=== PATIENT | female | born 1985 | race American Indian/Alaskan Native ===

== ENCOUNTER 2017-01-09 18:41 | Emergency (ER) | payer BC, OTHER ==
[2017-01-09 18:48] VITALS: BP 101/62; PULSE 73; TEMP 98.4; BMI 22.8
--- NOTE | 2017-01-09 19:08 | PDOC ---
History of Present Illness - General Chief Complaint: Injury Stated Complaint: RT ANKLE INJURY Time Seen by Provider: 01/09/17 19:01 History Source: Patient Exam Limitations: No Limitations - History of Present Illness Initial Comments: 01/09/17 19:03 Occurred: reports: just prior to arrival Past History - Travel Traveled outside of the country in the last 30 days: No Close contact w/someone who was outside of country & ill: No - Past Medical History Allergies/Adverse Reactions: Allergies Allergy/AdvReac Type Severity Reaction Status Date / Time No Known Allergies Allergy Verified 01/09/17 18:48 Other medical history: NONE - Psycho/Social/Smoking Cessation Hx Anxiety: No Suicidal Ideation: No Smoking History: Never smoked Hx Alcohol Use: No Drug/Substance Use Hx: No Substance Use Type: None Review of Systems - Review of Systems Able to Perform ROS?: Yes Is the patient limited Estonian proficient: Yes Constitutional: Yes: Symptoms Reported, See HPI HEENTM: No: Symptoms Reported Respiratory: No: Symptoms reported Musculoskeletal: Yes: Symptoms Reported, See HPI, Joint Pain, Joint Swelling Integumentary: Yes: Symptoms Reported, See HPI, Bruising (to lateral aspect dorsum of foot. + ) Neurological: Yes: Symptoms reported, See HPI, Numbness All Other Systems: Reviewed and Negative *Physical Exam - Vital Signs Last Vital Signs Temp Pulse Resp BP Pulse Ox 98.4 F 73 20 101/62 97 01/09/17 18:44 01/09/17 18:44 01/09/17 18:44 01/09/17 18:44 01/09/17 18:44 - Physical Exam General Appearance: Yes: Nourished, Appropriately Dressed, Apparent Distress HEENT: positive: DINAH, Normal ENT Inspection, TMs Normal, Pharynx Normal Gastrointestinal/Abdominal: positive: Soft. negative: Normal Bowel Sounds Musculoskeletal: positive: Decreased Range of Motion. negative: Normal Inspection Extremity: positive: Normal Range of Motion, Tender (+5th metatarsal tenderness negative medial or lateral malleoli tenderness, negative squeeze test, neurovascular intact to toes) Integumentary: positive: Dry, Warm, Swelling, Bruising Neurologic: positive: buckle sewer II-XII NML intact, Fully Oriented, Alert, Normal Mood/ Affect Progress Note - Progress Note Progress Note: Right ankle sprain, Georges air cast and crutches provided *DC/Admit/Observation/Transfer Diagnosis at time of Disposition: Right ankle sprain Qualifiers: Encounter type: initial encounter Involved ligament of ankle: unspecified ligament Qualified Code(s): S93.401A - Sprain of unspecified ligament of right ankle, initial encounter - Discharge Dispostion Disposition: HOME Condition at time of disposition: Stable Admit: No - Referrals Referrals: Viraj Bettencourt MD [Primary Care Provider] - Lalo Collins MD [Staff Physician] - - Patient Instructions Printed Discharge Instructions: DI for Ankle Sprain Additional Instructions: Rest, ice to area on and off for 15 minutes 4-6 times a day Avoid heavy lifting or exercise until pain and swelling is resolved or until further directed Keep area highly elevated to reduce swelling Use splints/Georges wrap as directed Followup with orthopedist in one to 2 days if not improving, if significantly improved may wait one week for followup with orthopedist May use ibuprofen 2-200 mg tablets every 6 hours as needed for pain - Post Discharge Activity Work/School Note: Back to Work
[2017-01-09] MEDS ORDERED: OXYCODONE/APAP 5/325MG COMBO TABLET ONE (19:19)
== END 2017-01-09 19:28 | disposition home or self-care (01) ==
LOC: JERFT 18:41
PROC: 2W3LX1Z Immobilization of Right Lower Extremity using Splint (ICD-10-PCS; principal; 2017-01-09)
DX: S93.401A Sprain of unspecified ligament of right ankle, initial encounter (principal); X50.1XXA Overexertion from prolonged static or awkward postures, initial encounter; Y93.89 Activity, other specified; Y92.89 Other specified places as the place of occurrence of the external cause; Y99.8 Other external cause status
CPT/HCPCS: 73610-TC-RT; 99281-25

== ENCOUNTER 2018-07-18 12:12 | Emergency (ER) | payer BC ==
[2018-07-18 12:45] VITALS: TEMP 98.3; BMI 25.7
[2018-07-18] MEDS ORDERED: ACETAMINOPHEN 325 MG TABLET (FP) PO ONE (14:12)
[2018-07-18] MEDS ORDERED: ACETAMINOPHEN 325 MG TABLET (FP) ONE (14:17)
--- NOTE | 2018-07-18 14:53 | PDOC ---
History of Present Illness - General Chief Complaint: Chest Pain Stated Complaint: CHEST PAIN/PREG Time Seen by Provider: 07/18/18 13:06 History Source: Patient Exam Limitations: No Limitations - History of Present Illness Initial Comments: 07/18/18 14:17 32 yo female 13 weeks with first child, no sig pmh presents to the ED for sudden onset non exercional CP that began at 8 30 this am. Pain is focally located just lateral to the sternum at rib 4, described as sharp, non radiating made worse with movement and local palpation, no N/V. No smoking hx, HTN, HLD. Pt states no trauma but states she had a hug from a co worker today after giving the news of . No SOB, abdominal pain or changes in bowel or bladder function. Past History - Past Medical History Allergies/Adverse Reactions: Allergies Allergy/AdvReac Type Severity Reaction Status Date / Time No Known Allergies Allergy Verified 07/18/18 12:39 Home Medications: Ambulatory Orders Pnv No.95/Ferrous Fum/Folic AC [ Formula] 1 each PO DAILY 07/18/18 COPD: No - Suicide/Smoking/Psychosocial Hx Smoking History: Never smoked Information on smoking cessation initiated: No Hx Alcohol Use: No Drug/Substance Use Hx: No Substance Use Type: None Review of Systems - Review of Systems Constitutional: No: Chills, Fever Respiratory: No: Shortness of Breath Cardiac (ROS): Yes: Chest Pain (focal). No: Palpitations ABD/GI: No: Constipated, Diarrhea, Nausea, Vomiting : Yes: Other (denies vaginal bleeding). No: Dysuria, Flank Pain Musculoskeletal: Yes: Muscle Weakness (left arm states it is due to pain) Neurological: No: Headache *Physical Exam - Vital Signs Last Vital Signs Temp Pulse Resp BP Pulse Ox 98.3 F 83 18 97/55 L 100 07/18/18 12:41 07/18/18 12:41 07/18/18 12:41 07/18/18 12:41 07/18/18 12:41 - Physical Exam General Appearance: Yes: Nourished, Appropriately Dressed. No: Apparent Distress HEENT: positive: EOMI Respiratory/Chest: positive: Lungs Clear, Normal Breath Sounds. negative: Respiratory Distress Cardiovascular: positive: Regular Rhythm, Regular Rate, S1, S2. negative: Edema , JVD, Murmur Vascular Pulses: Dorsalis-Pedis (R): 4+, Doralis-Pedis (L): 4+ Gastrointestinal/Abdominal: positive: Normal Bowel Sounds, Flat, Soft. negative : Guarding, Rebound, Tenderness Musculoskeletal: positive: Normal Inspection Extremity: positive: Normal Capillary Refill Integumentary: positive: Normal Color, Dry, Warm Neurologic: positive: Fully Oriented, Alert, Normal Mood/Affect, Normal Response ED Treatment Course - LABORATORY CBC & Chemistry Diagram: 07/18/18 14:58 07/18/18 14:58 Medical Decision Making - Medical Decision Making 07/18/18 15:47 Waiting for call back from Dr. Owens *DC/Admit/Observation/Transfer Diagnosis at time of Disposition: Chest pain Qualifiers: Chest pain type: other chest pain Qualified Code(s): R07.89 - Other chest pain - Discharge Dispostion Disposition: HOME Condition at time of disposition: Stable Decision to Admit order: No - Referrals Referrals: Fernando Beck MD [Staff Physician] - - Patient Instructions Printed Discharge Instructions: Medications and , Costochondritis, DI for Chest Pain Additional Instructions: Please follow up with your TOOLING ENGINEER Doctor within the next 2 days regarding your ER visit. Please return to the Emergency Room for new or worsening symptoms including but not limited to: chest pain on exertion, severe chest pain not relieved by medications, nausea, vomiting or weakness on one side of your body. Please only take Tylenol for pain and no other pain medication due to for relief as needed and directed on the box. Thank you. - Post Discharge Activity
--- NOTE | 2018-07-18 15:05 | PDOC ---
Attending Attestation - Resident Resident Name: Manjinder Gao - ED Attending Attestation I have performed the following: I have examined & evaluated the patient, The case was reviewed & discussed with the resident, I agree w/resident's findings & plan, Exceptions are as noted - HPI HPI: 07/18/18 15:00 32 yo F currently 13 weeks here with c/o chest pain. pt states no h/o pe/ dvt. no leg swelling. 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 denies trauma. hurts with any movement or breathing. no recent travel. no calf swelling. no f/c no cough. follows ob dr friedman - Physicial Exam PE: 07/18/18 15:02 awake alert lungs clear bilaterally chest wall ttp. no rebound no guarding. heart rrr no mrg. abd soft gravid nontender. ext wwp no calf tenderness no calf tenderness no edema. skin warm and dry. - Medical Decision Making 07/18/18 15:03 focused ED ultrsaound transabdominal ob/ evaluate well being uterus scanned in two planes. movement noted. heart rate measured 141 bpm impression : live IUP normal heart rate. focused ED TTE performed indication chest pain no peridardial effusion good contractility no rv dilation or strain. impression: normal TTE 32 yo F with 13 weeks , here with reproducible chest pain. normal echo, normal fhr. will obtain ekg, cxr r/o infeciton or rib injury. tylenol for pain. will d/w dr. friedman. unlikely pe as reproducable nature.
[2018-07-18 15:08] LABS: BASO % 0.4 % (0-2.0); EOS % 0.3 % (0-4.5); HEMATOCRIT 36.3 % (32.4-45.2); HEMOGLOBIN 12.1 GM/dL (10.7-15.3); LYMPH % 15.6 % (8-40); MCH 29.1 pg (25.7-33.7); MCHC 33.4 g/dl (32.0-36.0); MEAN CELL VOLUME 87.2 fl (80-96); MEAN PLT VOLUME 8.2 fl (7.5-11.1); MONO % 4.7 % (3.8-10.2); PLATELET COUNT 244 K/MM3 (134-434); RBC 4.16 M/mm3 (3.60-5.2); RDW 13.4 % (11.6-15.6); WHITE BLOOD COUNT 13.9 K/mm3 (4.0-10.0)
[2018-07-18 15:42] LABS: ALK PHOS 52 U/L (45-117); ANION GAP 8 MMOL/L (8-16); BILIRUBIN,TOTAL 0.2 mg/dL (0.2-1); BLOOD UREA NITROGEN 5 mg/dL (7-18); CALCIUM 8.5 mg/dL (8.5-10.1); CHLORIDE 105 mmol/L (98-107); CO2 22 mmol/L (21-32); CREATININE 0.3 mg/dL (0.55-1.3); GLUCOSE,RANDOM 68 mg/dL (74-106); POTASSIUM 3.9 mmol/L (3.5-5.1); SGOT/AST 14 U/L (15-37); SGPT/ALT 17 U/L (13-61); SODIUM 135 mmol/L (136-145); TOT PROT 6.7 g/dl (6.4-8.2)
[2018-07-18 17:44] VITALS: BP 95/44; PULSE 79
--- NOTE | 2018-07-19 13:04 | EKG ---
Test Reason : Blood Pressure : / mmHG Vent. Rate : 077 BPM Atrial Rate : 077 BPM P-R Int : 136 ms QRS Dur : 092 ms QT Int : 392 ms P-R-T Axes : 062 091 047 degrees QTc Int : 443 ms NORMAL SINUS RHYTHM POSSIBLE LEFT ATRIAL ENLARGEMENT RIGHTWARD AXIS INCOMPLETE RIGHT BUNDLE BRANCH BLOCK BORDERLINE ECG NO PREVIOUS ECGS AVAILABLE Confirmed by MD OLESYA, ANY ([id number]) on 07/19/2018 1:04:12 PM Referred By: Confirmed By:ANY DACOSTA MD
== END 2018-07-18 17:44 | disposition home or self-care (01) ==
LOC: JER 12:12
PROC: B24BZZZ Ultrasonography of Heart with Aorta (ICD-10-PCS; principal; 2018-07-18)
PROC: BY49ZZZ Ultrasonography of First Trimester, Single Fetus (ICD-10-PCS; 2018-07-18)
DX: O26.891 Other specified pregnancy related conditions, first trimester (principal); R07.89 Other chest pain; Z3A.13 13 weeks gestation of pregnancy
CPT/HCPCS: 36415; 71046-TC-FY; 80053; 82550; 84484; 85025; 93005; 93010; 93970-TC; 99282-25

== ENCOUNTER 2018-12-29 09:20 | Inpatient (IN) | payer BC, OTHER ==
[2018-12-29] MEDS ORDERED: DEXTROSE 5%-LACTATED RINGERS 1,000 ML IV SCH (10:15)
[2018-12-29] MEDS ORDERED: AMPICILLIN - 2 GM in DEXTROSE 5%-WATER 100 ML IVPB ONE (10:15)
[2018-12-29] MEDS ORDERED: AMPICILLIN SODIUM 2 GM VIAL ONE (10:19)
[2018-12-29 11:07] LABS: BASO % 0.2 % (0-2.0); EOS % 0.6 % (0-4.5); HEMATOCRIT 39.8 % (32.4-45.2); HEMOGLOBIN 12.9 GM/dL (10.7-15.3); LYMPH % 18.1 % (8-40); MCH 28.4 pg (25.7-33.7); MCHC 32.4 g/dl (32.0-36.0); MEAN CELL VOLUME 87.7 fl (80-96); MEAN PLT VOLUME 8.1 fl (7.5-11.1); MONO % 8.6 % (3.8-10.2); NEUT % 72.5 % (42.8-82.8); PLATELET COUNT 298 K/MM3 (134-434); RBC 4.53 M/mm3 (3.60-5.2); RDW 14.3 % (11.6-15.6)
[2018-12-29 11:21] LABS: INR 0.95 (0.83-1.09); PROTHROMBIN TIME (PATIENT) 11.2 SEC (9.7-13.0)
[2018-12-29 11:35] LABS: ANION GAP 9 MMOL/L (8-16); BLOOD UREA NITROGEN 7 mg/dL (7-18); CALCIUM 8.8 mg/dL (8.5-10.1); CHLORIDE 105 mmol/L (98-107); CO2 24 mmol/L (21-32); CREATININE 0.4 mg/dL (0.55-1.3); GLUCOSE,RANDOM 97 mg/dL (74-106); POTASSIUM 4.2 mmol/L (3.5-5.1); SODIUM 138 mmol/L (136-145)
[2018-12-29 11:39] VITALS: BMI 30.3
[2018-12-29] MEDS ORDERED: TUBERCULIN PPD 5 TU/0.1ML SYRINGE (IN PATIENT USE ONLY) ID ONE (13:00)
[2018-12-29] MEDS ORDERED: BUTORPHANOL TARTRATE 1 MG/ML VIAL IVPUSH ONE (13:38)
[2018-12-29] MEDS ORDERED: PROMETHAZINE HCL 25 MG/1 ML VIAL IVPUSH ONE (13:38)
--- NOTE | 2018-12-29 13:44 | HP ---
Past Medical History - Primary Care Physician PCP:: Fernando Beck - Admission Chief Complaint: 36 weeks, prom History of Present Illness: 33 yo f g 1 p0 36 weeks, c/o rom since 5 am today, clear fluid, no pain, no fever , no vaginal bleeding, fhr cat 1, no contraction History Source: Patient Limitations to Obtaining History: No Limitations - Past Medical History ...: 1 ...Para: 0 ...LMP: 04/18/18 ... Weeks Gestation by Dates: 36.3 ...EDC by Dates: 01/23/19 ...EDC by Sono: 01/21/19 - Past Surgical History Hx Myomectomy: No Hx Transabdominal Cerclage: No - Smoking History Smoking history: Never smoked - Alcohol/Substance Use Hx Alcohol Use: No - Social History Usual Living Arrangement: Yes: With Spouse History of Recent Travel: No Home Medications - Allergies Allergies/Adverse Reactions: Allergies Allergy/AdvReac Type Severity Reaction Status Date / Time No Known Allergies Allergy Verified 07/18/18 12:39 - Home Medications Home Medications: Ambulatory Orders Pnv No.95/Ferrous Fum/Folic AC [ Formula] 1 each PO DAILY 07/18/18 Review of Systems - Review of Systems Constitutional: reports: No Symptoms Eyes: reports: No Symptoms HENT: reports: No Symptoms Neck: reports: No Symptoms Cardiovascular: reports: No Symptoms Respiratory: reports: No Symptoms Gastrointestinal: reports: No Symptoms Genitourinary: reports: No Symptoms Breasts: reports: No Symptoms Reported Musculoskeletal: reports: No Symptoms Integumentary: reports: No Symptoms Neurological: reports: No Symptoms Endocrine: reports: No Symptoms Hematology/Lymphatic: reports: No Symptoms Psychiatric: reports: No Symptoms Physical Exam - Maternity Vital Signs: Vital Signs Temperature 98 F 12/29/18 13:00 Pulse Rate 94 H 12/29/18 13:00 Respiratory Rate 20 12/29/18 13:00 Blood Pressure 109/74 12/29/18 13:00 O2 Sat by Pulse Oximetry (%) Constitutional: Yes: Well Nourished, No Distress, Calm Eyes: Yes: WNL, Conjunctiva Clear, EOM Intact HENT: Yes: WNL, Atraumatic, Normocephalic Neck: Yes: WNL, Supple, Trachea Midline Cardiovascular: Yes: WNL, Regular Rate and Rhythm Breast(s): Yes: WNL - Abdominal Exam/OB Fundal Height: 36 Number of Fetuses: Single Presentation: Vertex Contractions: No Regularity: Irritability Intensity: Unaware Monitor Mode: External Heart Rate Location: [facility] Category: I - Vaginal Exam/OB Vaginal Bleediing: No Speculum Exam: Yes Amniotic Membrane Status: Ruptured Nitrazine Test: Positive Amniotic Fluid: Yes: Clear Presentation: Vertex/Position Station: -3 - Physical Exam Musculoskeletal: Yes: WNL Extremities: Yes: WNL Edema: LLE: Trace, RLE: Trace Deep Tendon Reflex Grade: Normal +2 - Labs Lab Results: CBC, BMP 12/29/18 10:30 12/29/18 10:30 Problem List - Problems (1) with 36 completed weeks gestation Code(s): Z3A.36 - 36 WEEKS GESTATION OF (2) PROM (premature rupture of membranes) Code(s): O42.90 - KAM ROM, 7TH0 BETW RUPT & ONST LABR, UNSP WEEKS OF GEST Qualifiers: PROM onset of labor timing: onset of labor within 24 hours of rupture Assessment/Plan plan admit
[2018-12-29] MEDS ORDERED: AMPICILLIN SODIUM 1 GM VIAL ONE ×3 (13:58→20:43)
[2018-12-29] MEDS: AMPICILLIN - 1 GM in DEXTROSE 5%-WATER - 50 ML IVPB SCH ×3 (14:15→22:07)
--- NOTE | 2018-12-29 16:27 | PN ---
Progress Note (short form) - Note Progress Note: CX CLOSED , VX -3 MR, NITRAZINE POSITIVE, GROSS FLUID LEKAGE , FHR CAT 1, NO CONTRACTION, , CERVIDIL INDUCTION VS EXPECTANT MAMNAGEMENT DISCUSSED , ADVISED CERVIDIL INDUCTION CERVIDIL INSERTED Problem List - Problems (1) with 36 completed weeks gestation Code(s): Z3A.36 - 36 WEEKS GESTATION OF (2) PROM (premature rupture of membranes) Code(s): O42.90 - KAM ROM, 7TH0 BETW RUPT & ONST LABR, UNSP WEEKS OF GEST Qualifiers: PROM onset of labor timing: onset of labor within 24 hours of rupture
[2018-12-29] MEDS ORDERED: DINOPROSTONE 10 MG VAGINAL SUPPOSITORY VG ONE (16:30)
[2018-12-29] MEDS ORDERED: BUTORPHANOL TARTRATE 1 MG/ML VIAL ONE ×2 (18:23)
[2018-12-29] MEDS ORDERED: PROMETHAZINE HCL 25 MG/1 ML VIAL ONE (18:23)
[2018-12-29] MEDS ORDERED: ELECTROLYTE-148 SOLN 1,000 ML IV SCH ×2 (19:30→20:45)
[2018-12-29] MEDS ORDERED: FENTANYL/BUPIVACAINE/NS/PF - PCEA - 50 ML DISP.SYRIN EP ONE (20:43)
--- NOTE | 2018-12-29 20:48 | PN ---
Progress Note (short form) - Note Progress Note: cx 4 cm 80 vx 0 mr, fhr cat 1, wants epidural , cervidil removed Problem List - Problems (1) with 36 completed weeks gestation Code(s): Z3A.36 - 36 WEEKS GESTATION OF (2) PROM (premature rupture of membranes) Code(s): O42.90 - KAM ROM, 7TH0 BETW RUPT & ONST LABR, UNSP WEEKS OF GEST Qualifiers: PROM onset of labor timing: onset of labor within 24 hours of rupture
[2018-12-29] MEDS: FENTANYL/BUPIVACAINE/NS/PF - PCEA - 50 ML DISP.SYRIN EP SCH (21:25)
--- NOTE | 2018-12-29 21:46 | PN ---
Progress Note (short form) - Note Progress Note: cx 9 cm 100 vx 0 , mr, early decel, good btb , and accel, anticipating vaginal delivery Problem List - Problems (1) with 36 completed weeks gestation Code(s): Z3A.36 - 36 WEEKS GESTATION OF (2) PROM (premature rupture of membranes) Code(s): O42.90 - KAM ROM, 7TH0 BETW RUPT & ONST LABR, UNSP WEEKS OF GEST Qualifiers: PROM onset of labor timing: onset of labor within 24 hours of rupture
[2018-12-29] MEDS ORDERED: LIDOCAINE HCL 1% PRESERVATIVE FREE - 30ML VIAL ONE (22:11)
[2018-12-29] MEDS ORDERED: OXYTOCIN 20 UNITS in 0.9% NS 20 UNIT/1,000 ML INFUS.BAG IV ONE (22:11)
--- NOTE | 2018-12-29 22:27 | PN ---
Progress Note (short form) - Note Progress Note: irregular contraction, fhr cat 1, has epidural advised low dose pitocin.rba discusse Problem List - Problems (1) with 36 completed weeks gestation Code(s): Z3A.36 - 36 WEEKS GESTATION OF (2) PROM (premature rupture of membranes) Code(s): O42.90 - KAM ROM, 7TH0 BETW RUPT & ONST LABR, UNSP WEEKS OF GEST Qualifiers: PROM onset of labor timing: onset of labor within 24 hours of rupture
[2018-12-29] MEDS ORDERED: OXYTOCIN 30 UNITS in 0.9% NS 30 UNIT/500 ML INFUS.BAG IVPB SCH (22:30)
[2018-12-29] MEDS ORDERED: OXYTOCIN 30 UNITS in 0.9% NS 30 UNIT/500 ML INFUS.BAG IVPB ONE (22:40)
[2018-12-30] MEDS ORDERED: BISACODYL 10 MG SUPP.RECT RC PRN (00:12)
[2018-12-30] MEDS ORDERED: BENZOCAINE 20% 57 GM BOTTLE TP PRN (00:12)
[2018-12-30] MEDS ORDERED: WITCH HAZEL 50% (TUCKS) 40 PAD/JAR PAD TP PRN (00:12)
[2018-12-30] MEDS ORDERED: BENZOCAINE 28 GM HEMORRHOIDAL OINTMENT TP PRN (00:12)
[2018-12-30] MEDS ORDERED: METHYLERGONOVINE MALEATE 0.2 MG/1 ML AMP IM PRN (00:12)
--- NOTE | 2018-12-30 00:12 | PN ---
Progress Note (short form) - Note Progress Note: cx full 100 vx 2+ , pushing, anticipate vaginal delivery Problem List - Problems (1) with 36 completed weeks gestation Code(s): Z3A.36 - 36 WEEKS GESTATION OF (2) PROM (premature rupture of membranes) Code(s): O42.90 - KAM ROM, 7TH0 BETW RUPT & ONST LABR, UNSP WEEKS OF GEST Qualifiers: PROM onset of labor timing: onset of labor within 24 hours of rupture
[2018-12-30] MEDS ORDERED: OXYTOCIN 20 UNITS in 0.9% NS 20 UNIT/1,000 ML INFUS.BAG IV SCH (00:15)
[2018-12-30] MEDS ORDERED: D5W-LR W/ 20 UNITS OXYTOCIN 1,000 ML IV SCH (00:15)
[2018-12-30 01:21] LABS: ARTERIAL BLD GAS O2 SATURATION 30.3 % (95-98); ARTERIAL BLOOD GAS PCO2 70.1 mmHg (35-45); ARTERIAL BLOOD GAS PO2 26.2 mmHg (80-105); ARTERIAL BLOOD GAS pH 7.11 (7.35-7.45)
[2018-12-30 01:22] LABS: ARTERIAL BLOOD GAS BASE EXCESS -10.9 meq/l (-2-2); VENOUS PH 7.2 (7.31-7.41)
[2018-12-30] MEDS ORDERED: OXYTOCIN 20 UNITS in 0.9% NS 20 UNIT/1,000 ML INFUS.BAG IV ONE ×2 (01:42→02:59)
[2018-12-30] MEDS ORDERED: NALOXONE HCL 0.4 MG/ML VIAL IVPUSH PRN (02:03)
[2018-12-30] MEDS: IBUPROFEN 600 MG TABLET (FP) PO PRN ×3 (06:31→20:04)
[2018-12-30] MEDS: ACETAMINOPHEN 325 MG TABLET (FP) PO PRN ×3 (06:37→20:05)
[2018-12-30] MEDS: FERROUS SO4 325 MG TABLET (FP) PO SCH ×2 (07:59→18:18)
--- NOTE | 2018-12-30 08:20 | PN ---
Delivery - Delivery Vaginal Delivery: Spontaneous (median episiotomy done , head delived, naso pharynx suctioned , ant and post, shoulder no difficulty, live baby girl, no complication, median episiotomy 3 layes , no compliction.) Type of Anesthesia: Epidural Episiotomy/Laceration: Midline EBL (cc): 300 Delivery, Single - Stages of Labor Date 1st Stage Initiatied: 12/29/18 Time 1st Stage Initiated: 19:30 Date 2nd Stage Initiated: 12/29/18 Time 2nd Stage Initiated: 23:28 Date of Delivery: 12/30/18 Time of Delivery: 00:29 Time Placenta Delivered: 00:35 - Condition of Email Campaign Manager/Marketing Director Assisted Living Present: No Infant Gender: Female Weight: 6 lb 12 oz Position: Left, OA Total Hours ROM (Hrs/Mins): 19h35m - 1 Minute Total Score: 8 5 Minutes Total Score: 9 - [place] Feeding Plan Initial Plan: Exclusive throughout hospitalization
[2018-12-30] MEDS: PRENATAL VITAMINS W/ FOLIC ACID TABLET (FP) PO SCH (09:06)
[2018-12-31] MEDS: IBUPROFEN 600 MG TABLET (FP) PO PRN ×3 (06:46→22:19)
[2018-12-31] MEDS: ACETAMINOPHEN 325 MG TABLET (FP) PO PRN ×3 (06:48→22:20)
[2018-12-31] MEDS: FERROUS SO4 325 MG TABLET (FP) PO SCH ×2 (08:12→17:13)
[2018-12-31 08:58] LABS: BASO % 0.5 % (0-2.0); EOS % 0.7 % (0-4.5); HEMATOCRIT 32.6 % (32.4-45.2); HEMOGLOBIN 10.8 GM/dL (10.7-15.3); LYMPH % 18.6 % (8-40); MCH 29.1 pg (25.7-33.7); MCHC 33.2 g/dl (32.0-36.0); MEAN CELL VOLUME 87.7 fl (80-96); MEAN PLT VOLUME 8.1 fl (7.5-11.1); NEUT % 74.2 % (42.8-82.8); PLATELET COUNT 271 K/MM3 (134-434); RBC 3.72 M/mm3 (3.60-5.2); WHITE BLOOD COUNT 14.9 K/mm3 (4.0-10.0)
[2018-12-31] MEDS: PRENATAL VITAMINS W/ FOLIC ACID TABLET (FP) PO SCH (09:34)
--- NOTE | 2018-12-31 16:14 | PN ---
Post Progress Note - Subjective Subjective: Patient without acute complaints. Reports tolerating oral intake without nausea or vomiting. Ambulating without dizziness. Denies fevers or chills. Pain well controlled with oral pain medication. Pumping/breast feeding without issue. Post Day: 1 Type of Delivery: Vital Signs: Vital Signs Temperature 98 F 12/31/18 08:39 Pulse Rate 70 12/31/18 08:39 Respiratory Rate 20 12/31/18 08:39 Blood Pressure 119/73 12/31/18 08:39 O2 Sat by Pulse Oximetry (%) 98 12/29/18 23:10 Breast Exam: Yes: Soft Uterus: Yes: Fundus Firm, Fundus below umbilicus, Non-tender Abdomen/GI: Yes: Abdomen soft Lochia: Yes: Rubra Lochia, amount: Small Extremities: Yes: Calves non-tender Perineum: Yes: Laceration (intact) Activity: Ambulating - Labs Labs: CBC WBC 14.9 K/mm3 (4.0-10.0) H 12/31/18 06:00 RBC 3.72 M/mm3 (3.60-5.2) 12/31/18 06:00 Hgb 10.8 GM/dL (10.7-15.3) 12/31/18 06:00 Hct 32.6 % (32.4-45.2) D 12/31/18 06:00 MCV 87.7 fl (80-96) 12/31/18 06:00 MCH 29.1 pg (25.7-33.7) 12/31/18 06:00 MCHC 33.2 g/dl (32.0-36.0) 12/31/18 06:00 RDW 15.0 % (11.6-15.6) 12/31/18 06:00 Plt Count 271 K/MM3 (134-434) 12/31/18 06:00 MPV 8.1 fl (7.5-11.1) 12/31/18 06:00 Absolute Neuts (auto) 11.1 K/mm3 (1.5-8.0) H 12/31/18 06:00 Neutrophils % 74.2 % (42.8-82.8) 12/31/18 06:00 Lymphocytes % 18.6 % (8-40) 12/31/18 06:00 Monocytes % 6.0 % (3.8-10.2) 12/31/18 06:00 Eosinophils % 0.7 % (0-4.5) 12/31/18 06:00 Basophils % 0.5 % (0-2.0) 12/31/18 06:00 Nucleated RBC % 0 % (0-0) 12/31/18 06:00 Assessment/Plan 33yo P1 s/p , doing well stable, afebrile. No s/sx's of anemia. care instructions reviewed. Continue routine care. Ambulation encouraged Discharge instruction reviewed.
[2018-12-31] MEDS ORDERED: SENNOSIDES/DOCUSATE COMBO (SENNA PLUS) TABLET (UD) PO PRN (22:00)
[2019-01-01] MEDS: FENTANYL/BUPIVACAINE/NS/PF - PCEA - 50 ML DISP.SYRIN EP SCH (02:27)
[2019-01-01] MEDS: FERROUS SO4 325 MG TABLET (FP) PO SCH (08:48)
[2019-01-01] MEDS: PRENATAL VITAMINS W/ FOLIC ACID TABLET (FP) PO SCH (09:44)
--- NOTE | 2019-01-01 10:49 | DS ---
Physical Exam-DINING ROOM SUPERVISOR Vital Signs: Vital Signs Temperature 98.6 F 12/31/18 22:00 Pulse Rate 78 12/31/18 22:00 Respiratory Rate 18 12/31/18 22:00 Blood Pressure 120/78 12/31/18 22:00 O2 Sat by Pulse Oximetry (%) 98 12/29/18 23:10 Constitutional: Yes: Well Nourished, No Distress, Calm Eyes: Yes: WNL, Conjunctiva Clear HENT: Yes: WNL, Atraumatic, Normocephalic Neck: Yes: WNL, Supple, Trachea Midline Cardiovascular: Yes: WNL, Regular Rate and Rhythm Respiratory: Yes: WNL, Regular, CTA Bilaterally Gastrointestinal: Yes: WNL, Normal Bowel Sounds, Soft ...Rectal Exam: Yes: Deferred Renal/: Yes: WNL Internal Exam Deferred: Yes ....Post : Yes: Uterus firm, Uterus non-tender, Slight lochia rubra, Moderate lochia serosa Breast(s): Yes: WNL Musculoskeletal: Yes: WNL Extremities: Yes: WNL Edema: Yes Edema: LLE: 1+, RLE: 1+ Integumentary: Yes: WNL Wound/Incision: Yes: Clean/Dry, Well Approximated, Open to air Neurological: Yes: WNL, Alert, Oriented ...Motor Strength: WNL Psychiatric: Yes: WNL, Alert, Oriented Labs: CBC, BMP 12/31/18 06:00 12/29/18 10:30 Delivery - Delivery Vaginal Delivery: No Problems, Spontaneous (median episiotomy done , head delived, naso pharynx suctioned , ant and post, shoulder no difficulty, live baby girl, no complication, median episiotomy 3 layes , no compliction.) Type of Anesthesia: Epidural Episiotomy/Laceration: Midline EBL (cc): 300 Delivery, Single - Stages of Labor Date 1st Stage Initiatied: 12/29/18 Time 1st Stage Initiated: 19:30 Date 2nd Stage Initiated: 12/29/18 Time 2nd Stage Initiated: 23:28 Date of Delivery: 12/30/18 Time of Delivery: 00:29 Time Placenta Delivered: 00:35 Placenta: Yes: Spontaneous, Normal Configuration - Condition of Infant Perinatal Breastfeeding Assistant/Surgical Endoscopist Present: No Infant Gender: Female Weight: 3.062 kg Position: Left, OA Total Hours ROM (Hrs/Mins): 19h35m - 1 Minute Total Score: 8 5 Minutes Total Score: 9 - Feeding Plan Initial Plan: Exclusive throughout hospitalization Discharge Summary Reason For Visit: LABOR ADMISSION Current Active Problems PROM (premature rupture of membranes) (Acute) with 36 completed weeks gestation (Acute) Procedures: Principal: [facility] Hospital Course: Normal recovery Condition: Good - Instructions Diet, Activity, Other Instructions: Physical activity Resume your normal everyday activity as tolerated no heavy lifting or exercise until seen by your surgeon. You may walk unlimited ericka of and climb stairs. You may resume driving the car when you feel safe and comfortable behind the wheel. No sexual activity as instructed. Wound care If you have a bandage, leave it on, and keep dry for 48-72 hours. After that time discard the outer bandage. If they are tapes on the skin under the out of bandage leave them in place. They will peel off in the next 7 to 10 days. Do Not Peel them off. You may shower the day after surgery. If there are tapes present on the skin, you may shower over them. Diet There are no dietary restrictions. Eat healthy, high-fiber foods. Drink 6 to 8 glasses of liquid each day. This will assist in keeping your bowels are regular. Pain management You may take Tylenol or acetaminophen or Ibuprofen (for example, Motrin, Advil etc.) from my pain prescription medication is ordered should be taken as prescribed for moderate to severe pain. Call MD for any of the following: Severe pain not relieved by medication Fever of 101 or higher Excessive bleeding or drainage on dressing Inability to urinate Referrals: Fernando Beck MD [Staff Physician] - Disposition: HOME - Home Medications Comprehensive Discharge Medication List: Ambulatory Orders Pnv No.95/Ferrous Fum/Folic AC [ Formula] 1 each PO DAILY 07/18/18
[2019-01-01 11:34] VITALS: BP 110/71; PULSE 69; TEMP 98.2
== END 2019-01-01 14:00 | disposition home or self-care (01) | DRG 807 ==
LOC: JDEL 09:20 → JLDR 10:00 → J3W 12-30 03:32
PROVIDERS: ADMIT Obstetrics & Gynecology; ATTEND Obstetrics & Gynecology
PROC: 3E0P7VZ Introduction of Hormone into Female Reproductive, Via Natural or Artificial Opening (ICD-10-PCS; 2018-12-29)
PROC: 0W8NXZZ Division of Female Perineum, External Approach (ICD-10-PCS; principal; 2018-12-30)
PROC: 10E0XZZ Delivery of Products of Conception, External Approach (ICD-10-PCS; 2018-12-30)
DX: O42.913 Preterm premature rupture of membranes, unspecified as to length of time between rupture and onset of labor, third trimester (principal); Z37.0 Single live birth; Z3A.36 36 weeks gestation of pregnancy
CPT/HCPCS: 36415; 36600; 59409; 80048; 82803; 85025; 85610; 85730; 86593; 86850; 86880; 86900; 86901

== ENCOUNTER 2022-02-18 03:25 | Inpatient (IN) | payer OTHER ==
[2022-02-18] MEDS ORDERED: OXYTOCIN 20 UNITS in 0.9% NS 20 UNIT/1,000 ML INFUS.BAG IV ONE ×2 (04:04→05:43)
[2022-02-18] MEDS ORDERED: LIDOCAINE HCL 1% PRESERVATIVE FREE - 30ML VIAL ONE (04:04)
[2022-02-18] MEDS ORDERED: MISOPROSTOL 200 MCG TABLET ONE ×2 (05:08→05:23)
[2022-02-18] MEDS ORDERED: OXYTOCIN 10 UNITS/ML VIAL ONE (05:25)
[2022-02-18] MEDS ORDERED: ACETAMINOPHEN INJECTION 100 ML IVPB ONE (05:52)
[2022-02-18 05:53] LABS: HEMATOCRIT 34.6 % (32.4-45.2); HEMOGLOBIN 11.3 GM/dL (10.7-15.3); MCH 28.6 pg (25.7-33.7); MCHC 32.6 g/dl (32.0-36.0); MEAN CELL VOLUME 87.6 fl (80-96); MEAN PLT VOLUME 8.1 fl (7.5-11.1); PLATELET COUNT 228 10^3/uL (134-434); RBC 3.95 M/mm3 (3.60-5.2); RDW 14.5 % (11.6-15.6); WHITE BLOOD COUNT 23.6 K/mm3 (4.0-10.0)
[2022-02-18 06:15] VITALS: BMI 29.8
[2022-02-18 06:17] LABS: ACTIVATED PTT 27.5 SECONDS (25.2-36.5); INR 0.99 (0.83-1.09); PROTHROMBIN TIME (PATIENT) 11.4 SEC (9.7-13.0)
[2022-02-18] MEDS ORDERED: BENZOCAINE 20% 57 GM BOTTLE TP PRN (06:27)
[2022-02-18] MEDS ORDERED: oxyCODONE HCL 5 MG TABLET PO PRN (06:27)
[2022-02-18] MEDS ORDERED: METHYLERGONOVINE MALEATE 0.2 MG/1 ML AMP IM PRN (06:27)
[2022-02-18] MEDS ORDERED: BISACODYL 10 MG SUPP.RECT RC PRN (06:27)
[2022-02-18] MEDS ORDERED: WITCH HAZEL 50% (TUCKS) 40 PAD/JAR PAD TP PRN (06:27)
[2022-02-18] MEDS ORDERED: BENZOCAINE 28 GM HEMORRHOIDAL OINTMENT TP PRN (06:27)
[2022-02-18] MEDS ORDERED: D5W-LR W/ 20 UNITS OXYTOCIN 20 UNIT/1,000 ML INFUS.BAG IV SCH (06:30)
[2022-02-18] MEDS ORDERED: OXYTOCIN 20 UNITS in 0.9% NS 20 UNIT/1,000 ML INFUS.BAG IV SCH (06:30)
[2022-02-18] MEDS ORDERED: ELECTROLYTE-148 SOLN 1,000 ML IV SCH (06:30)
[2022-02-18] MEDS ORDERED: CARBOPROST TROMETHAMINE 250 MCG/ML AMPUL IM ONE ×2 (06:33→06:36)
[2022-02-18] MEDS ORDERED: OXYTOCIN 20 UNITS in 0.9% NS 1000 ML INFUS.BAG IV ONE (06:38)
[2022-02-18] MEDS ORDERED: ACETAMINOPHEN 1000 MG/100 ML BAG IVPB ONE (07:00)
[2022-02-18 07:12] LABS: CORD BASE EXCESS -8.1 mmol/L (0-2); CORD HCO3 20.2 mmHg (20-29); CORD PCO2 53.3 mmHg (30-78); CORD pH 7.197 (7.14-7.44)
[2022-02-18 07:13] LABS: CORD BASE EXCESS -12.9 mmol/L (0-2); CORD HCO3 18.3 mmHg (20-29); CORD pH 7.06 (7.14-7.44)
[2022-02-18] MEDS: MISOPROSTOL 200 MCG TABLET NR SCH ×2 (07:52→14:12)
[2022-02-18 10:09] LABS: ANISOCYTOSIS 0; MACROCYTOSIS 0; PLATELET ESTIMATE NORMAL
[2022-02-18] MEDS: PRENATAL VITAMINS W/ FOLIC ACID TABLET (FP) PO SCH (10:16)
[2022-02-18] MEDS: ACETAMINOPHEN 325 MG TABLET (FP) PO PRN ×2 (13:07→16:37)
[2022-02-18 15:40] LABS: HEMATOCRIT 24.8 % (32.4-45.2); HEMOGLOBIN 8.4 GM/dL (10.7-15.3); MCH 29.2 pg (25.7-33.7); MCHC 33.7 g/dl (32.0-36.0); MEAN CELL VOLUME 86.6 fl (80-96); MEAN PLT VOLUME 7.8 fl (7.5-11.1); PLATELET COUNT 200 10^3/uL (134-434); RBC 2.86 M/mm3 (3.60-5.2); RDW 14.5 % (11.6-15.6); WHITE BLOOD COUNT 18.3 K/mm3 (4.0-10.0)
[2022-02-18] MEDS ORDERED: DEXTROSE 5%-WATER - 50 ML IVPB ONE (18:36)
[2022-02-18] MEDS ORDERED: ceFAZolin SODIUM 1 GM VIAL ONE (18:36)
[2022-02-18] MEDS: CEFAZOLIN 1 GM in DEXTROSE 5%-WATER - 50 ML IVPB SCH (18:39)
[2022-02-18] MEDS: IBUPROFEN 600 MG TABLET (FP) PO PRN (21:44)
[2022-02-19] MEDS ORDERED: ceFAZolin SODIUM 1 GM VIAL ONE ×3 (01:58→18:18)
[2022-02-19] MEDS ORDERED: DEXTROSE 5%-WATER - 50 ML IVPB ONE ×3 (01:58→18:18)
[2022-02-19] MEDS: CEFAZOLIN 1 GM in DEXTROSE 5%-WATER - 50 ML IVPB SCH ×3 (02:05→18:32)
[2022-02-19 07:06] LABS: BASO % 0.3 % (0-2.0); EOS % 0.4 % (0-4.5); HEMATOCRIT 21.7 % (32.4-45.2); HEMOGLOBIN 7.1 GM/dL (10.7-15.3); MCH 28.9 pg (25.7-33.7); MCHC 32.9 g/dl (32.0-36.0); MEAN CELL VOLUME 87.9 fl (80-96); MEAN PLT VOLUME 8.2 fl (7.5-11.1); MONO % 7.1 % (3.8-10.2); NEUT % 68.2 % (42.8-82.8); PLATELET COUNT 182 10^3/uL (134-434); RBC 2.47 M/mm3 (3.60-5.2); RDW 14.8 % (11.6-15.6); WHITE BLOOD COUNT 15.5 K/mm3 (4.0-10.0)
[2022-02-19] MEDS: PRENATAL VITAMINS W/ FOLIC ACID TABLET (FP) PO SCH (09:59)
[2022-02-19] MEDS: IBUPROFEN 600 MG TABLET (FP) PO PRN ×2 (10:38→18:36)
[2022-02-19] MEDS ORDERED: SENNOSIDES/DOCUSATE COMBO (SENNA PLUS) TABLET (UD) PO PRN (22:00)
[2022-02-20] MEDS: PRENATAL VITAMINS W/ FOLIC ACID TABLET (FP) PO SCH (10:49)
[2022-02-20 10:54] VITALS: BP 104/70; PULSE 90; TEMP 98
== END 2022-02-20 13:20 | disposition home or self-care (01) | DRG 806 ==
LOC: JLDR 03:25 → J3W 08:30
PROVIDERS: ADMIT Obstetrics & Gynecology; ATTEND Obstetrics & Gynecology
PROC: 10D07Z6 Extraction of Products of Conception, Vacuum, Via Natural or Artificial Opening (ICD-10-PCS; principal; 2022-02-18)
PROC: 0KQM0ZZ Repair Perineum Muscle, Open Approach (ICD-10-PCS; 2022-02-18)
PROC: 0W8NXZZ Division of Female Perineum, External Approach (ICD-10-PCS; 2022-02-18)
DX: O44.43 Low lying placenta NOS or without hemorrhage, third trimester (principal); O72.1 Other immediate postpartum hemorrhage; Z37.0 Single live birth; O70.1 Second degree perineal laceration during delivery; O69.2XX0 Labor and delivery complicated by other cord entanglement, with compression, not applicable or unspecified; O90.81 Anemia of the puerperium; D64.9 Anemia, unspecified; Z3A.38 38 weeks gestation of pregnancy
CPT/HCPCS: 36415; 36600; 59409; 82803; 85025; 85027; 85384; 85610; 85730; 88307-TC